=== PATIENT | female | born 2000 | race Hispanic/Latino ===

== ENCOUNTER 2019-12-20 18:00 | Inpatient (IN) | payer MEDICAID, OTHER, SELFPAY ==
[~2019-12-20 18:00] MED LIST: Bupivacaine 0.25% HCL 30 ML VIAL ONE
[2019-12-20] MEDS ORDERED: Acetaminophen 500 MG TAB PO PRN (19:34)
[2019-12-20 23:27] VITALS: BMI 40.2
[2019-12-20] MEDS ORDERED: Butorphanol Tartrate 1 MG/ML VIAL SLOW IVP PRN (23:29)
[2019-12-20] MEDS ORDERED: hydrALAZINE 20 MG/ML VIAL SLOW IVP PRN (23:29)
[2019-12-20] MEDS ORDERED: Ondansetron PF 4 MG/2 ML Vial IVP PRN (23:30)
[2019-12-20] MEDS ORDERED: Meperidine HCl/PF 25 MG/ML VIAL IM/IV PRN (23:30)
[2019-12-20] MEDS ORDERED: Lidocaine 1% (PF) 30 ML VIAL SC PRN (23:30)
[2019-12-20] MEDS ORDERED: Penicillin G Potassium 5 MILL.UNITS in Sodium Chloride 0.9% 100 ML IVPB SCH (23:30)
[2019-12-20] MEDS ORDERED: Promethazine HCl 25 MG/ML VIAL IM PRN (23:31)
[2019-12-20] MEDS ORDERED: Misoprostol 100 MCG TAB VAG SCH (23:45)
[2019-12-21 01:11] LABS: Hemoglobin 12.5 g/dL (12.0-16.0); Mean Corpuscular HGB CONC 34.5 g/dL (32.0-36.0); Mean Corpuscular Hemoglobin 28.1 pg (27.0-31.0); Mean Corpuscular Volume 81.3 fL (78.0-98.0); Mean Platelet Volume 10.8 fL (7.4-10.4); Platelet Count 176 thou/uL (130-400); Red Blood Cell (RBC) Count 4.44 mill/uL (4.20-5.40); White Blood Cell (WBC) Count 11.5 thou/uL (4.8-10.8)
[2019-12-21] MEDS: Lactated Ringer's 1,000 ML IV SCH ×3 (01:39→09:15)
[2019-12-21 02:04] LABS: HBSAg Index 0.17 S/CO (0-0.99); Hep B Surf Ag Non-Reactive S/CO (NonReactive)
[2019-12-21] MEDS: Misoprostol 100 MCG TAB VAG SCH ×3 (03:10→17:09)
--- NOTE | 2019-12-21 04:41 | PDOC.FPROB ---
FMR OB H&P: HPI - History of Present Illness Chief Complaint: mIOL for BMI, A1GDM History of Present Illness: 19 yo presenting for mIOL due to obesity and A1GDM at 39.3 wks by 10.2 wk sono. Patient is feeling baby move. She denies contractions, bleeding, LOF, or vaginal discharge. FMR OB H&P: Current - Care : 2 Para: 1001 Gestational age: 39.3 Due date: 12/24/2019 Dating Criteria: 10.2 wk sono Course/Complications: Late transfer of care from [place], Obesity, A1GDM, Hx of episiotomy, hx of PPH, GBS bacteriuria - OB Labs Blood type: A RH: positive Antibody Screen: negative HIV: negative RPR: negative HepBsAg: negative Rubella: immune Gonorrhea: negative Chlamydia: negative 1 hour gtt: 2hr: 97/214/176 GBS: positive - Additional Ultrasound Additional: US 2 weeks ago: 3076g. [place] 70 FMR OB H&P: History - Past Medical History PMH: None - OB History OB History: Hx of PPH and episiotomy with previous - CONTENT STRATEGIST History CONTENT STRATEGIST History: NILM 11/2019: Pap - Surgical History Sx History: cyst removed on L foot - Social History Social History: denies tobacco, alcohol, or drug use - Family History Family History: Non-contributory FMR OB H&P: Medications - Current Home Medications: Medication Instructions Recorded Confirmed Type Iron 1 tab PO DAILY 12/20/19 12/20/19 History Pnv No.95/Ferrous Fum/Folic AC 1 tab PO DAILY 12/20/19 12/20/19 History [ [place]] Docusate Calcium [Surfak] 240 mg PO BID #20 cap 12/22/19 Rx Ferrous Sulfate [Feosol] 325 mg PO BID-WM #20 tab 12/22/19 Rx Ibuprofen [Motrin] 800 mg PO Q8HR #20 tab 12/22/19 Rx Vitamin 1 tab PO DAILY tab 12/22/19 Rx Allergies/Adverse Reactions: Allergies Allergy/AdvReac Type Severity Reaction Status Date / Time No Known Allergies Allergy Verified 12/20/19 23:19 FMR OB H&P: ROS - Review of Systems General: denies: fever/chills Eyes: denies: vision changes ENT: denies: rhinorrhea, sore throat Cardiovascular: denies: chest pain, edema Respiratory: denies: cough, congestion, shortness of breath Gastrointestinal: denies: abdominal pain, nausea, vomiting, diarrhea, constipation Genitourinary (Female): denies: dysuria, vaginal discharge, vaginal bleeding, vaginal pressure Neurologic: denies: headache FMR OB H&P: Vital Signs - Maternal Vital signs: Vital Signs - First Documented Temp Pulse Resp BP 99.2 F 81 18 120/66 12/20/19 21:59 12/20/19 21:59 12/20/19 21:59 12/20/19 21:59 - Heart Tones Baseline: 140 Variability: moderate Acceleration: present Deceleration: absent Category: category 1 Triana contractions every: 3-5 min FMR OB H&P: Physical Exam - Physical Exam General: NAD HEENT: normocephalic and atraumatic, EOMI, no scleral icterus, grossly normal vision, grossly normal hearing Neck: FROM Heart: RRR, no murmurs/rubs/gallops, pulses present, no edema General: CTAB, no respiratory distress, no wheezing Abdomen: gravid Neurological: sensation to pain,touch and proprioception grossly normal Psychiatric: intact recent and remote memory, good judgement and insight, normal mood and affect - Pelvic Exam Vulva: normal hair distribution, appropriate tamar stage, no lesions SVE: 2/50/-3 Gayle score: 3 Membranes: intact Presentation: cephalic Estimated Weight: 7 lbs (3100g) R OB H&P: Results - Labs Lab results: Laboratory Results - last 24 hr 12/21/19 12/21/19 12/21/19 00:53 00:55 00:55 WBC RBC Hgb Hct MCV MCH MCHC RDW Plt Count MPV POC Glucose 90 Hep Bs Antigen Non-Reactive Blood Type A POSITIVE Antibody Screen NEGATIVE 12/21/19 12/21/19 00:55 01:51 WBC 11.5 H RBC 4.44 Hgb 12.5 Hct 36.1 MCV 81.3 MCH 28.1 MCHC 34.5 RDW 14.0 Plt Count 176 MPV 10.8 H POC Glucose Hep Bs Antigen Blood Type A POSITIVE Antibody Screen R OB H&P: A/P Discussion: Date/Time: 12/21/19 0439 19 yo presenting for mIOL due to obesity and A1GDM at 39.3 wks by 10.2 wk sono sIUP Bedside US: 37.2wks, 3100g, JIMENA 5.1, vertex position, anterior placenta /-3 @ 0207 cat 1 tracing cytotec placed @ 0310 Recheck at 0610 A1GDM Diet controlled throughout Q6h glucose checked GBS bacteruria Recieving penicillin Obesity mIOL Hx PPH Plan for cytotec and pit in third stage of labor Hx episiotomy Aware. Baby was 3100g on bedside US. This H&P was discussed with Dr. Stovall who agrees with the above documentation and plan. Addendum - Attending - Attending Attestation Date/Time: 12/30/19 0753 I personally evaluated the patient and discussed the management with Dr. Gr at time of admission. I agree with the History, Examination, Assessment and Plan documented above with any addition or exceptions noted below.
[2019-12-21 04:54] LABS: HIV (1/2) Antibody/Antigen Non-Reactive (NonReactive); HIV 1/2 INDEX 0.21 S/CO (<1.00)
[2019-12-21] MEDS: Penicillin G 2.5 MILL.units 2.5 MILL.UNITS in Premix Bag 1 BAG IVPB SCH ×3 (06:03→17:08)
[2019-12-21 07:10] LABS: Syphilis Antibody Nonreactive (Nonreactive); Syphilis Antibody Index 0.04 S/CO (<1.00 Non-Reactive)
--- NOTE | 2019-12-21 08:09 | ULT ---
ULTRASOUND OBSTETRICAL COMPLETE: DATE: 12/21/2019 HISTORY: 19-year-old female with gestational diabetes. Evaluate presentation and growth. FINDINGS: number: grider lie: Cephalic Maternal cervix: Not visualized. Placenta: Anterior. No placenta previa. Amniotic fluid volume: JIMENA = 5cm heart rate: 133 bpm The anatomy was not evaluated biometry: Biparietal diameter (BPD): 9.1 cm 36 w 6 d Head circumference (HC): 32.8 cm 37 w 3 d Abdominal circumference (AC): 32.5 cm 36 w 3 d Femur length (FL): 7.5 cm 38 w 2 d Average ultrasound age (AUA): 37 w 2 d Estimated date of delivery (CHETAN): 01/09/2020 Estimated weight (EFW): 3100 g +/- 459 g IMPRESSION: 1) Live 3rd trimester intrauterine gestation. 2) Estimated gestational age of 37 weeks, 2 days 3) cephalic lie. 4) oligohydramnios.
[2019-12-21] MEDS ORDERED: Fentanyl 4 mcg/Bup 0.1% Cadd 100 ML ONE (08:56)
[2019-12-21] MEDS ORDERED: NS w/ Oxytocin 10 units 500 ML IV SCH (09:30)
--- NOTE | 2019-12-21 09:57 | PDOC.OBLPN ---
FMR OB Labor PN: Subj - Interval History Chief Complaint: mIOL 2/2 BMI and A1GDM Indentification: 19 yo Interval History: Feeling contractions, rates pain 7/10 FMR OB Labor PN: Obj - Maternal Vital signs: BP: 113/68 HR: 77 RR: 18 Tmax: 98.3 FMR OB Labor PN: Exam - Physical Exam General: NAD HEENT: normocephalic and atraumatic, grossly normal vision, grossly normal hearing Neck: supple Deviation from normal: No respiratory distress Abdomen: gravid, non-tender Musculoskeletal: FROM in all four extremities Neurological: sensation to pain,touch and proprioception grossly normal Skin: no rash Psychiatric: intact recent and remote memory, good judgement and insight, normal mood and affect - Pelvic Exam Vulva: normal hair distribution, appropriate tamar stage SVE: 3.5-/-3 FMR OB Labor PN: Data - Labs Lab results: Laboratory Results - last 24 hr 12/21/19 12/21/19 12/21/19 00:53 00:55 00:55 WBC RBC Hgb Hct MCV MCH MCHC RDW Plt Count MPV POC Glucose 90 Syphilis IgG/IgM Ab Nonreactive Hep Bs Antigen Non-Reactive HIV 1&2 Antigen & Ab Blood Type Antibody Screen 12/21/19 12/21/19 12/21/19 00:55 00:55 00:55 WBC 11.5 H RBC 4.44 Hgb 12.5 Hct 36.1 MCV 81.3 MCH 28.1 MCHC 34.5 RDW 14.0 Plt Count 176 MPV 10.8 H POC Glucose Syphilis IgG/IgM Ab Hep Bs Antigen HIV 1&2 Antigen & Ab Non-Reactive Blood Type A POSITIVE Antibody Screen NEGATIVE 12/21/19 12/21/19 01:51 06:26 WBC RBC Hgb Hct MCV MCH MCHC RDW Plt Count MPV POC Glucose 95 Syphilis IgG/IgM Ab Hep Bs Antigen HIV 1&2 Antigen & Ab Blood Type A POSITIVE Antibody Screen FMR OB Labor PN: A/P Discussion: sIUP -Bedside US: 37.2wks, 3100g, JIMENA 5.1, vertex position, anterior placenta -3.5-/-3 @ ~0630 -baseline 140 cat 1 tracing, no decels, accels noted -cytotec placed @ 0310 A1GDM -Diet controlled throughout -Q4h glucose checks, Q1 in active stage GBS bacteruria -receiving penicillin Obesity -mIOL Hx PPH -Plan for cytotec and pit in third stage of labor Hx episiotomy -Aware. Baby was 3100g on bedside US. Addendum - Attending - Attending Attestation Date/Time: 12/21/19 0705 I personally evaluated the patient and discussed the management with Dr. Smith I agree with the History, Examination, Assessment and Plan documented above with any addition or exceptions noted below. 19 yo female at 39.4 wks admitted for mIOL 2/2 A1GDM and BMI 40. Patient doing well. Starting to feel more frequent and painful contractions. FHT cat 1 tracing. - sIUP: OB record reviewed. Late transfer of care. - A1GDM: Monitor glucose q 4 hours. q 1 hour in 2nd stage. Treat if > 115. - BMI 40: Risk discussed. Continue close monitoring. Prepare for soft tissue dystocia. - GBS bacteruria: Continue PCN q 4 hours. - Hx of PPH: Patient unaware of history but well documented. Pit and miso in 3rd stage. Start pitocin with next exam if unchanged. Jailene
[2019-12-21] MEDS: NS / Oxytocin 40 units/1000ml 1,000 ML IV PRN ×2 (12:04→14:48)
[2019-12-21] MEDS ORDERED: Methylergonovine 0.2 MG/ML VIAL ONE (12:09)
[2019-12-21] MEDS ORDERED: NS / Oxytocin 40 units/1000ml 0 ML ONE (12:09)
[2019-12-21] MEDS ORDERED: Misoprostol 200 MCG TAB ONE ×2 (12:09→12:19)
[2019-12-21] MEDS ORDERED: Carboprost 250 MCG/ML AMP ONE (12:09)
[2019-12-21] MEDS ORDERED: Tranexamic Acid 1,000 MG/10 ML VIAL ONE (12:09)
[2019-12-21] MEDS ORDERED: EPHEDRINE 25 MG/5 ML SYRINGE SLOW IVP PRN (13:26)
[2019-12-21] MEDS ORDERED: diphenhydrAMINE 50 MG/ML VIAL IVP PRN (13:26)
[2019-12-21] MEDS ORDERED: Naloxone HCl 0.4 mg/ml Vial IVP PRN ×2 (13:26)
[2019-12-21] MEDS ORDERED: Lactated Ringer's 500 ML IV PRN (13:26)
[2019-12-21] MEDS ORDERED: Promethazine HCl 25 MG/ML VIAL IM PRN (13:26)
[2019-12-21] MEDS ORDERED: Acetaminophen 325 MG TAB PO PRN (13:26)
[2019-12-21] MEDS ORDERED: Ondansetron PF 4 MG/2 ML Vial IVP PRN (13:26)
[2019-12-21] MEDS ORDERED: Fentanyl 4 mcg/Bupivacaine 0.1% Cassette 100 ML EPIDURAL SCH (13:30)
[2019-12-21] MEDS ORDERED: Communication Order-Pharmacy FS PRN (13:30)
--- NOTE | 2019-12-21 13:36 | PDOC.OPDEL ---
OB Operative/Delivery Note Delivery Dr/Surgeon: Ravi Smith Pre-Delivery Diagnosis: medically indicated induction Procedure/Post Delivery Dx: spontaneous vaginal delivery Weeks gestation: 39 (39.4) Anesthesia: epidural - Additional Findings/Plan Placenta delivered: manual removal Repaired Obstetrical Laceration: none Estimated blood loss: 555 Compilations/Other Findings: Delivering Physician: Peri Smith MD Attending: Dr. Chen Rodrigues Procedure: Spontaneous Vaginal Delivery Anesthesia: epidural QBL: 555 ml Pre-op Diagnosis: 1. Term intrauterine mIOL 2. A1GDM 3. Obesity 4. Hx of PPH 5. GBS bacteriuria Post-op Diagnosis: 1. Term intrauterine , delivered 2. same as above Indications: A 19y/o female presents to L&D for induction due to A1GDM. Delivery Note: This is 19yo F G2 now P2 @ 39.4wks who delivered a viable F infant at 1203. Following an uneventful antepartum course, a vigorous female was delivered over an intact perineum in the OA position. Anterior Shoulder and then remainder of the body delivered. No nuchal cord. The head was held down and mouth and nares were bulb suctioned. Cord clamped. Cord blood was unable to be collected as placenta rapidly delivered shortly after infant. Mother was found to have retained products of conception and manual extraction was required. Mother received both cytotec, methergine, and fundal massage after which fundus became firm. The cervix and vagina were inspected and found to be free of lacerations. went to nursery in good condition for routine care. Apgars were 8/9 at 1 & 5 minutes, respectively. Patient tolerated delivery well and went to after routine recovery/care. Patient will receive 24 hours of prophylactic antibiotics to prevent endometritis Attending Note: I was present and participated in the above documented procedure. Retained POC located in lower left region of uterus. Several attempts made for removal. Continued to be removed in pieces. Atony resolved. Will monitor closely. PP precautions of continued or heavy lochia discussed. On last pass felt as though all products were removed. Otherwise uncomplicated. Jailene
[2019-12-21] MEDS ORDERED: Bisacodyl 10 MG SUPP PR PRN (15:09)
[2019-12-21] MEDS ORDERED: HYDROcodone/Acetaminophen 5/325 mg Tablet PO PRN ×2 (15:09)
[2019-12-21] MEDS ORDERED: Milk Of Magnesia 30 ML UDCUP PO PRN (15:09)
[2019-12-21] MEDS ORDERED: Misoprostol 200 MCG TAB VAG PRN (15:09)
[2019-12-21] MEDS ORDERED: Lanolin Ointment 7 GM TUBE TOP PRN (15:09)
[2019-12-21] MEDS ORDERED: Methylergonovine 0.2 MG/ML VIAL IM PRN (15:09)
[2019-12-21] MEDS ORDERED: Preparation H Ointment 28 GM TUBE PR PRN (15:09)
[2019-12-21] MEDS ORDERED: hydrALAZINE 20 MG/ML VIAL SLOW IVP PRN (15:09)
[2019-12-21] MEDS ORDERED: NS / Oxytocin 40 units/1000ml 1,000 ML IV SCH (15:09)
[2019-12-21] MEDS ORDERED: diphenhydrAMINE 25 MG CAP PO PRN (15:09)
[2019-12-21] MEDS: Ferrous Sulfate 325 MG TAB PO SCH (16:35)
[2019-12-21] MEDS: Ampicillin/Sulbactam 3 GM in Sodium Chloride 0.9% 100 ML IVPB SCH ×2 (17:20→23:18)
[2019-12-21] MEDS: Docusate Calcium (SURFAK) 240 MG CAP PO SCH (21:25)
[2019-12-21] MEDS: Ibuprofen 800 MG TAB PO SCH (21:25)
[2019-12-22] MEDS: Ibuprofen 800 MG TAB PO SCH ×2 (05:15→14:04)
[2019-12-22] MEDS: Ampicillin/Sulbactam 3 GM in Sodium Chloride 0.9% 100 ML IVPB SCH ×2 (05:16→11:59)
[2019-12-22 07:24] LABS: #Eosinphils 0.1 thou/uL (0.0-0.7); #Lymphocytes 2.1 thou/uL (1.20-3.40); #Monocytes 0.5 thou/uL (0.11-0.59); #Neutrophils 5.1 thou/uL (1.40-6.50); %Basophils 0.1 % (0.0-1.0); %Eosinophils 1.3 % (0.0-10.0); %Lymphocytes 26.7 % (21.0-51.0); %Monocytes 6.3 % (0.0-10.0); %Neutrophils 65.6 % (42.0-75.0); Hemoglobin 8.2 g/dL (12.0-16.0); Mean Corpuscular HGB CONC 33.9 g/dL (32.0-36.0); Mean Corpuscular Hemoglobin 28.2 pg (27.0-31.0); Mean Corpuscular Volume 83.2 fL (78.0-98.0); Mean Platelet Volume 9.6 fL (7.4-10.4); Platelet Count 130 thou/uL (130-400); Red Blood Cell (RBC) Count 2.92 mill/uL (4.20-5.40); White Blood Cell (WBC) Count 7.7 thou/uL (4.8-10.8)
[2019-12-22] MEDS: Ferrous Sulfate 325 MG TAB PO SCH ×2 (08:45→16:33)
[2019-12-22] MEDS: Docusate Calcium (SURFAK) 240 MG CAP PO SCH (08:45)
[2019-12-22] MEDS ORDERED: Prenatal Vitamin 1 TAB PO SCH (09:00)
--- NOTE | 2019-12-22 09:27 | PDOC.OBPPN ---
FMR OB PN: Subj - Interval History Day: PP day 1 mIOL 2/2 to BMi, A1GDM 19 yo G2 now P2 s/p with retained products of conception requiring manual extraction Reports minimal pain, denies fever/chills, reports tolerating PO, urinating normal, ambulating FMR OB PN: Obj - Maternal Vital signs: BP: 101/50 HR: 80 RR: 20 Tmax: 98.6 - Urine output I&O: 12/21/19 12/22/19 12/23/19 06:59 06:59 06:59 Intake Total 1400 Output Total 670 Balance 730 - Lochia Lochia: Normal - Pain Management Pain scale: 5 Intervention: oral medication FMR OB PN: Exam - Physical Exam General: NAD, awake, alert and oriented HEENT: normocephalic and atraumatic, grossly normal vision, grossly normal hearing Neck: supple, FROM Heart: RRR, normal S1/S2, no murmurs/rubs/gallops, no edema General: CTAB, no respiratory distress, good air movement, no wheezing, no retractions Abdomen: soft Deviation from normal: ATTP Neurological: sensation to pain,touch and proprioception grossly normal Skin: no rash Lymphatic: no unusual bruising or bleeding Psychiatric: intact recent and remote memory, good judgement and insight, normal mood and affect FMR OB PN: Data - Labs Lab results: Laboratory Results - last 24 hr 12/21/19 12/22/19 11:51 06:25 WBC 7.7 RBC 2.92 L Hgb 8.2 L Hct 24.3 L MCV 83.2 MCH 28.2 MCHC 33.9 RDW 14.0 Plt Count 130 MPV 9.6 Neutrophils % 65.6 Lymphocytes % 26.7 Monocytes % 6.3 Eosinophils % 1.3 Basophils % 0.1 Neutrophils # 5.1 Lymphocytes # 2.1 Monocytes # 0.5 Eosinophils # 0.1 Basophils # 0.0 POC Glucose 114 H FMR OB PN: A/P Discussion: 19 yo G2 now P2 s/p with retained products of conception requiring manual extraction s/p with retained products of conception requiring manual extraction -tolerating PO, ambulating, urinating -normal lochia -pain well controlled with motrin and tylenol -afebrile, will receive 24hrs of antibiotics for prophylaxis -will need 1 week f/u to assess for infection A1GDM -Diet controlled throughout -will need 6 wk f/u GBS bacteruria -received adequate ppx Obesity -mIOL Hx PPH -cytotec, pit, and methergine given during this delivery Hx episiotomy -no concerns this delivery Dispo: likely dc home today after 24hrs of antibiotics Addendum - Attending - Attending Attestation Date/Time: 12/22/19 1032 I personally evaluated the patient and discussed the management with Dr. Smith I agree with the History, Examination, Assessment and Plan documented above with any addition or exceptions noted below. POD/PPD#1 Patient doing extremely well. No complications yesterday. Request early d/c if baby doing well. Has good support at home and already has OV scheduled for Wednesday. Will complete antibx ppx due to risk for infx. Discussed precautions about bleeding, pain, and infection. Ok to d/c home if infant doing well. Pt meeting milestones. Jailene
[2019-12-22 11:43] VITALS: BP 100/53; TEMP 99.2
[2019-12-22] MEDS ORDERED: Measles/Mumps/Rubella 10 MCG/0.5 ML VIAL SC ONE (14:40)
== END 2019-12-22 17:30 | disposition home or self-care (01) | DRG 806 ==
LOC: L&D 21:19 → 3SE 12-21 15:05
PROVIDERS: ADMIT Family Medicine; ATTEND Family Medicine
PROC: 10E0XZZ Delivery of Products of Conception, External Approach (ICD-10-PCS; principal; 2019-12-21)
PROC: 10D17Z9 Manual Extraction of Products of Conception, Retained, Via Natural or Artificial Opening (ICD-10-PCS; 2019-12-21)
DX: O24.420 Gestational diabetes mellitus in childbirth, diet controlled (principal); O72.2 Delayed and secondary postpartum hemorrhage; Z37.0 Single live birth; Z3A.39 39 weeks gestation of pregnancy; O99.824 Streptococcus B carrier state complicating childbirth; O99.214 Obesity complicating childbirth; E66.01 Morbid (severe) obesity due to excess calories; O62.2 Other uterine inertia
CPT/HCPCS: 36415; 36416; 51702; 76815; 85025; 85027; 86780; 86850; 86900; 86901; 87340; 87389; 88307; 90707; J0295; J0595; J2210; J2540; J3490; S0020